=== PATIENT | female | born 1975 | race Caucasian/White ===

== ENCOUNTER 2016-12-08 03:04 | Emergency (ER) | payer OTHER | END 2016-12-08 03:47 | disposition home or self-care (01) | LOC: ER 03:04 | DX: M54.6 Pain in thoracic spine (principal); M79.1 Myalgia; E11.9 Type 2 diabetes mellitus without complications; I10 Essential (primary) hypertension; F17.210 Nicotine dependence, cigarettes, uncomplicated; F41.9 Anxiety disorder, unspecified; Z79.899 Other long term (current) drug therapy; Z79.84 Long term (current) use of oral hypoglycemic drugs ==